=== PATIENT | male | born 1945 ===

== ENCOUNTER 2023-08-20 12:36 | Outpatient (CLI) | payer OTHER | END 2023-08-20 12:37 | disposition home or self-care (01) | LOC: LAB 12:36 | PROVIDERS: ATTEND Urology | DX: R97.20 Elevated prostate specific antigen [PSA] (principal) ==

== ENCOUNTER 2023-09-18 07:03 | Outpatient (CLI) | payer OTHER | END 2023-09-18 07:12 | disposition home or self-care (01) | LOC: SONOGRAMA 07:03 | PROVIDERS: ATTEND Urology | DX: C61 Malignant neoplasm of prostate (principal); N40.1 Benign prostatic hyperplasia with lower urinary tract symptoms ==